=== PATIENT | male | born 1945 | race Caucasian/White ===

== ENCOUNTER 2017-02-27 05:25 | Day surgery (SDC) | payer MEDICARE, OTHER ==
[2017-02-23 10:20] LABS: HEMOGLOBIN 16.1 g/dL (13.5-17.5); MCH 31.7 pg (26.0-34.0); MCHC 33.5 g/dL (31.0-37.0); MCV 94.5 fL (80.0-100.0); MEAN PLATELET VOLUME 11.4 fL (7.4-10.4); RBC 5.08 10x6/uL (4.20-6.10); RDW 13.4 % (11.5-14.5); WBC 4.5 10x3/uL (4.8-10.8)
[2017-02-23 10:48] LABS: ANION GAP 12.3 mmol/L (8-16); CALCIUM 9.6 mg/dL (8.5-10.1); CARBON DIOXIDE 26.2 mmol/L (21.0-32.0); CREATININE - SERUM 1.3 mg/dL (0.6-1.3); POTASSIUM - SERUM 4.5 mmol/L (3.5-5.1)
[~2017-02-27] VITALS: Ht 179.1 cm; Wt 83.9 kg
--- NOTE | ~2017-02-27 | OP ---
PATIENT NAME: GARRETT ROCHA MEDICAL RECORD: [id number] :47 LOCATION:D.OPS ADMISSION DATE: SURGEON: GARRETT PUGH MD DATE OF OPERATION: 02/27/2017 PREOPERATIVE DIAGNOSIS: History of complex polyp involving the ascending colon. POSTOPERATIVE DIAGNOSES: 1. History of complex polyp involving the ascending colon with no evidence of regrowth of the polyp. 2. One new polyp, which was somewhat pedunculated was a 1.0 cm polyp and was located at 90 cm. 3. Mild pandiverticulosis. PROCEDURES: 1. Total colonoscopy to cecum. 2. Hot biopsy forceps polypectomy times 1. SURGEON: Garrett Pugh MD BOOKBINDER APPRENTICE: None. BLOOD LOSS: Minimal. ANESTHESIA: General. COMPLICATIONS: None. General anesthesia was used for this patient as I thought we were going to need to use the argon plasma painter hand, which is a radiofrequency type of ablation of a benign colonic process. OPERATIVE COURSE: The patient was conveyed to the operating room electively on 02/27/2017. General anesthesia was induced by anesthesia staff. The patient was placed in the Torres position. A digital rectal examination was performed. A colonoscope was inserted through the anus. It was easily advanced to the cecum. I intubated the ileum which appeared normal. I then slowly withdrew the endoscope. I used a routine imaging as well as narrow band imaging. I dragged the folds. I irrigated and aspirated extensively. I identified a polyp at 90 cm. It was removed in its entirety utilizing a hot biopsy forceps polypectomy technique. I continued to withdraw the endoscope. The pullback was greater than a 14-minute pullback. A retroflexed view was obtained in the rectum. I then unretroflexed the scope and removed it under direct vision. I will see the patient in my office in 2-3 weeks to discuss the results of the biopsies. At that time, I will plan to return the patient's endoscopic needs back over to Dr. Stone for surveillance lower endoscopies in the future. TRANSINT:[id number] Voice Confirmation ID: [id number] DOCUMENT ID: [id number] OPERATIVE REPORT [id number] GARRETT ROCHA GARRETT LANDA MD CC: ROWENA FRENCH M.D., ROWENA GOMEZ MD and LISHA STONE [id number] DICTATION DATE: 02/27/17 0854 DATA SCIENCES DIRECTOR: 02/27/17 1628 [facility] [place] 02/27/17 [place] [id number] [place] [address]
--- NOTE | ~2017-02-27 | HP ---
PATIENT: DORINDA ROCHA MEDICAL RECORD: [id number] ACCOUNT: [id number] LOCATION:SIMRAN : 47 ADMISSION DATE: 02/27/17 HISTORY AND PHYSICAL EXAMINATION PREOPERATIVE DIAGNOSIS: Complex ascending colon polyp. HISTORY OF PRESENT ILLNESS: The patient has a history of complex ascending colon polyp. The patient underwent colonoscopy with polypectomy last year. He is to undergo surveillance colonoscopy this year. The risks, possible complications and alternatives to procedure were explained to the patient. He elects to proceed. The patient had no abdominal pain. No rectal bleeding. PAST MEDICAL AND SURGICAL HISTORY: CABG times 5, history of a fractured left hand, hemorrhoidectomy, Ann's esophagus, gastroesophageal reflux which is controlled with medications, "prediabetes", baseline dyspnea, coronary artery disease. SOCIAL HISTORY: Nonsmoker. REVIEW OF SYSTEMS: Negative for CVA or seizures. Negative for thyroid disease or hepatitis. ALLERGIES: No known drug allergies. HOME MEDICINES: Aspirin, metformin, niacin, pravastatin, Prilosec, Proscar, TriCor, lecithin. PHYSICAL EXAMINATION: GENERAL: The patient does not appear acutely ill. He does not appear chronically ill. VITAL SIGNS: Reviewed. HEAD: External ears appear normal. EYES: Extraocular movements are intact. NECK: Trachea is midline. CHEST: No intercostal retractions. PULMONARY: Nonlabored, no stridor. ABDOMEN: Nontender. IMPRESSION: History of complex colon polyp. PLAN: Colonoscopy with polypectomy utilizing argon plasma investment manager. TRANSINT:[id number] Voice Confirmation ID: [id number] DOCUMENT ID: [id number] HISTORY AND PHYSICAL [id number] DORINDA ROCHA DORINDA LANDA MD CC: ROWENA FRENCH M.D., ROWENA GOMEZ MD and LISHA WHITTAKER [id number] DICTATION DATE: 02/27/17 0906 ERP ENGINEER: 02/27/[address] [facility] 02/27/17 [place] [id number] [place] [id number]
[~2017-02-27 05:25] MED LIST: ASPIRIN EC81 M1 PO; ASPIRIN325 MG PO; AVODART0.5 MG PO; FLAGYL500 MG PO; LECITHIN OR; LECITHIN1200 MG PO; METFORMIN HCL500 M1 PO; NIASPAN500 MG PO; PRAVACHOL40 MG PO; PRILOSEC20 MG PO; PROSCAR5 MG PO; TRICOR145 MG PO; ZETIA10 MG PO
[2017-02-27 06:50] VITALS: BP 119/72; Ht 179.1 cm; Wt 83.9 kg
--- NOTE | 2017-02-27 08:12 | NUR ---
NO PREP, NO SCD R/T COLONOSCOPY PROCEDURE
--- NOTE | 2017-02-27 08:13 | NUR ---
NO COUNTS R/T COLONOSCOPY
--- NOTE | 2017-02-27 08:23 | NUR ---
SKIP PADS LEFT THIGH [id number] EXP 12/18/2018, [id number] EXP 10/28/18
--- NOTE | 2017-02-27 10:30 | NUR ---
1000 IV DC WITH CATHER TIP INTACT
== END 2017-02-27 10:20 | disposition home or self-care (01) ==
LOC: D.OPS 05:25 → D.PAN 07:30 → D.OPS 07:30
PROVIDERS: Anesthesiology
DX: D12.2 Benign neoplasm of ascending colon (principal); Z95.1 Presence of aortocoronary bypass graft; K21.9 Gastro-esophageal reflux disease without esophagitis; K22.70 Barrett's esophagus without dysplasia; I25.10 Atherosclerotic heart disease of native coronary artery without angina pectoris

== ENCOUNTER 2018-03-05 05:40 | Day surgery (SDC) | payer MEDICARE, OTHER ==
[~2018-03-05] VITALS: Ht 179.1 cm; Wt 79.5 kg
--- NOTE | ~2018-03-05 | HP ---
PATIENT: DORINDA ROCHA MEDICAL RECORD: [id number] ACCOUNT: [id number] LOCATION:SIMRAN : 47 ADMISSION DATE: 03/05/18 HISTORY AND PHYSICAL EXAMINATION CHIEF COMPLAINT: Colon polyp. HISTORY OF PRESENT ILLNESS: The patient has had a history of a tubular adenoma with focal low-grade atypia dysplasia and that was at 90 cm. He is here for surveillance colonoscopy. The risks, possible complications, and alternatives to procedure were explained to the patient. A consent form was signed. ALLERGIES: No known drug allergies. HOME MEDICATIONS: Aspirin, metformin, lisinopril, niacin, Prilosec, fenofibrate, as well as Pravachol. SOCIAL HISTORY: Nonsmoker. PAST MEDICAL AND SURGICAL HISTORY: Coronary artery disease, hypertension, history of CABG times 5. He is prediabetic, gastroesophageal reflux, history of hemorrhoidectomy, history of colon polyp removal. PHYSICAL EXAMINATION: GENERAL: The patient does not appear acutely ill. He does not appear chronically ill. VITAL SIGNS: Reviewed. EARS: External ears appear normal. EYES: Extraocular movements are intact. NECK: Trachea is midline. CHEST: No intercostal retractions. PULMONARY: Nonlabored. IMPRESSION: History of tubular adenoma with low-grade dysplasia at 90 cm. PLAN: Surveillance colonoscopy. TRANSINT:[id number] Voice Confirmation ID: [id number] DOCUMENT ID: [id number] DORINDA PUGH MD at 1158 CC: ROWENA FRENCH M.D. and ROWENA GOMEZ [id number] DICTATION DATE: 03/05/18913 CLOTH WASHER OPERATOR: 03/05/18 1117 [facility] 03/05/18 [place] [id number]
--- NOTE | ~2018-03-05 | OP ---
PATIENT NAME: GARRETT ROCHA MEDICAL RECORD: [id number] :47 LOCATION:D.OPS ADMISSION DATE: SURGEON: GARRETT PUGH MD DATE OF OPERATION: 03/05/2018 PREOPERATIVE DIAGNOSES: 1. History of tubular adenoma with low-grade dysplasia at 90 cm. 2. History of colon polyps. POSTOPERATIVE DIAGNOSES: 1. History of tubular adenoma with low-grade dysplasia at 90 cm. 2. History of colon polyps. 3. Two new polyps. One was a semi-pedunculated polyp at 1.2 meters. The other was a sessile polyp. The semi-pedunculated polyp was a 1.2 cm polyp. The sessile polyp was an 8 mm polyp. 4. Scar at 90 cm, which was biopsied. I noted no regrowth of polypoid tissue there. PROCEDURES: 1. Total colonoscopy to cecum. 2. Cold endoscopic biopsies of a scar at 90 cm. 3. Hot biopsy forceps polypectomies times 2. SURGEON: Garrett Pugh MD SPRING INSPECTOR: None. BLOOD LOSS: Minimal. ANESTHESIA: IV sedation by the anesthesia staff. COMPLICATIONS: None. The risks, possible complications, and alternatives to the procedure were explained to the patient. He elects to proceed. ENDOSCOPIC COURSE: The patient was conveyed to the gastroenterology laboratory on 03/05/2018. IV sedation was induced by the anesthesia staff. The patient was placed in the Torres position. A digital rectal examination was performed. The prostate was symmetric and enlarged. A colonoscope was inserted through the anus. It was easily advanced to the cecum. The prep was adequate. I slowly withdrew the endoscope. I irrigated and aspirated extensively. The pullback was greater than a 15-minute pullback. I dragged the folds. A combination of normal imaging and narrow band imaging were utilized. Two hot biopsy forceps polypectomies were performed. The polyps were removed in their entireties. Biopsies of the scar were performed as well. There was no evidence of bleeding. A retroflexed view was obtained in the rectum. I then unretroflexed the scope and removed it under direct vision. I will see the patient in my office in 2-3 weeks. I will plan to return his endoscopic care back over to Dr. Pacheco for surveillance colonoscopies in the future. TRANSINT:[id number] Voice Confirmation ID: [id number] DOCUMENT ID: [id number] OPERATIVE REPORT [id number] GARRETT ROCHA, GARRETT ELLER at 1158 CC: ROWENA FRENCH M.D., ROWENA GOMEZ and LISHA WHITTAKER [id number] DICTATION DATE: 03/05/18 0952 PARTS COUNTER CLERK: 03/05/18 1356 [facility] 03/05/18 [place] [id number] [place] [id number]
[2018-03-05] MEDS ORDERED: AVODART0.5 MG PO (06:56)
[2018-03-05] MEDS ORDERED: LISINOPRIL10 MG PO (06:57)
[2018-03-05 07:19] VITALS: BP 137/66; Ht 179.1 cm; Wt 79.5 kg
[2018-03-05 07:19] LABS: CALC OSMOLALITY 280 mosm/kg (275-300); CALCIUM 8.8 mg/dL (8.5-10.1); CARBON DIOXIDE 25.8 mmol/L (21.0-32.0); CHLORIDE - SERUM 105 mmol/L (98-107); GLUCOSE 114 mg/dL (74-106); POTASSIUM - SERUM 4.3 mmol/L (3.5-5.1); SODIUM 139 mmol/L (136-145); UREA NITROGEN 19 mg/dL (7-18); eGFR NON AFRICAN AMERICAN 78 mL/min (90-120)
[2018-03-05 07:24] LABS: HEMATOCRIT 46.2 % (42.0-54.0); MCH 32.4 pg (26.0-34.0); MCHC 34.6 g/dL (31.0-37.0); MCV 93.5 fL (80.0-100.0); MEAN PLATELET VOLUME 11.8 fL (7.4-10.4); RBC 4.94 10x6/uL (4.20-6.10); RDW 13.1 % (11.5-14.5); WBC 4.2 10x3/uL (4.8-10.8)
== END 2018-03-05 10:50 | disposition home or self-care (01) ==
LOC: D.OPS 05:40
PROVIDERS: Anesthesiology
DX: Z12.11 Encounter for screening for malignant neoplasm of colon (principal); K63.5 Polyp of colon; K63.89 Other specified diseases of intestine; Z86.010 Personal history of colon polyps; I25.10 Atherosclerotic heart disease of native coronary artery without angina pectoris; I10 Essential (primary) hypertension; Z95.1 Presence of aortocoronary bypass graft; K21.9 Gastro-esophageal reflux disease without esophagitis; R73.03 Prediabetes; Z79.82 Long term (current) use of aspirin; Z79.84 Long term (current) use of oral hypoglycemic drugs; Z79.899 Other long term (current) drug therapy

== ENCOUNTER → 2019-09-19 13:55 | Outpatient (CLI) | payer MEDICARE, OTHER ==
[2018-03-05 07:19] VITALS: BMI 24.8
[~2019-09-19 13:55] MED LIST changes: +LISINOPRIL10 MG PO
== END | disposition home or self-care (01) ==
LOC: D.CT 13:55
PROVIDERS: ATTEND Internal Medicine Gastroenterology
DX: K31.89 Other diseases of stomach and duodenum (principal); Z04.89 Encounter for examination and observation for other specified reasons

== ENCOUNTER → 2020-04-02 07:26 | Outpatient (CLI) | payer MEDICARE, OTHER ==
[2018-03-05 07:19] VITALS: BMI 24.8
[2020-04-02 08:01] LABS: ALBUMIN 3.7 g/dL (3.4-5.0); BILIRUBIN - DIRECT 0.18 mg/dL (0.00-0.30); BILIRUBIN - INDIRECT 0.39 mg/dL (0.00-1.00); BILIRUBIN - TOTAL 0.57 mg/dL (0.2-1.3); PROTEIN - SERUM 6.4 g/dL (6.4-8.2)
== END | disposition home or self-care (01) ==
LOC: D.US 07:26
PROVIDERS: ATTEND Internal Medicine Gastroenterology
DX: K76.0 Fatty (change of) liver, not elsewhere classified (principal)

== ENCOUNTER → 2020-06-01 08:45 | Outpatient (CLI) | payer MEDICARE, OTHER ==
[2018-03-05 07:19] VITALS: BMI 24.8
== END | disposition home or self-care (01) ==
LOC: D.HCCECHO 08:45
PROVIDERS: ATTEND Internal Medicine Cardiovascular Disease
DX: I25.10 Atherosclerotic heart disease of native coronary artery without angina pectoris (principal)

== ENCOUNTER → 2021-03-21 08:34 | Outpatient (CLI) | payer MEDICARE, OTHER ==
[2018-03-05 07:19] VITALS: BMI 24.8
[2021-03-21 09:05] LABS: ALBUMIN 3.6 g/dL (3.4-5.0); BILIRUBIN - DIRECT 0.2 mg/dL (0.00-0.30); BILIRUBIN - INDIRECT 0.35 mg/dL (0.00-1.00); BILIRUBIN - TOTAL 0.55 mg/dL (0.2-1.3); PROTEIN - SERUM 6.2 g/dL (6.4-8.2)
== END | disposition home or self-care (01) ==
LOC: D.US 08:34
PROVIDERS: ATTEND Internal Medicine Gastroenterology
DX: K76.0 Fatty (change of) liver, not elsewhere classified (principal)

== ENCOUNTER → 2021-04-20 08:03 | Outpatient (CLI) | payer MEDICARE, OTHER ==
[2018-03-05 07:19] VITALS: BMI 24.8
== END | disposition home or self-care (01) ==
LOC: D.MRI 07:45
PROVIDERS: ATTEND Internal Medicine Gastroenterology
DX: R93.421 Abnormal radiologic findings on diagnostic imaging of right kidney (principal); N28.89 Other specified disorders of kidney and ureter